=== PATIENT | male | born 2000 | race Caucasian/White ===

== ENCOUNTER 2021-02-21 13:18 | Emergency (ER) | payer OTHER ==
[~2021-02-21] VITALS: Ht 182.9 cm; Wt 93.0 kg
[~2021-02-21 13:18] MED LIST: ACCUNEB SO1.25 MG/1; AZITHROMYC200 MG/51 PO; BENADRYL25 MG PO; MEDROLDOSEPACK PO; NOHOMEMEDICATIONS; PREDNISONE 20 M20 M1 PO; SEPTRA 80-4001 EACH PO; VENTOLIN HFA 1818 GM INH
[2021-02-21] MEDS ORDERED: IBUPROFEN 800800 M1 PO (15:07)
[2021-02-21 15:24] VITALS: BP 135/74
== END 2021-02-21 15:25 | disposition home or self-care (01) ==
LOC: M.ERS 13:18
DX: M25.462 Effusion, left knee (principal)